=== PATIENT | male | born 1970 | race African-American/Black ===

== ENCOUNTER 2020-03-16 11:21 | Emergency (ER) | payer BC, OTHER ==
[~2020-03-16] VITALS: Ht 190.5 cm; Wt 118.7 kg
[2020-03-16 11:23] VITALS: BP 158/93
== END 2020-03-16 12:44 | disposition home or self-care (01) ==
LOC: ED 12:35
DX: U07.1 COVID-19 (principal); J06.9 Acute upper respiratory infection, unspecified; I10 Essential (primary) hypertension; G89.29 Other chronic pain
CPT/HCPCS: 87635; 99283